=== PATIENT | male | born 1950 | race Caucasian/White ===

== ENCOUNTER 2021-04-30 07:51 | Inpatient (IN) | payer BC, MEDICARE ==
[2021-04-30 08:34] LABS: #Basophils 0.1 thou/uL (0.0-0.2); #Eosinphils 0.1 thou/uL (0.0-0.7); #Lymphocytes 0.8 thou/uL (1.20-3.40); #Monocytes 0.7 thou/uL (0.11-0.59); #Neutrophils 7.2 thou/uL (1.40-6.50); %Basophils 0.9 % (0.0-1.0); %Eosinophils 0.7 % (0.0-10.0); %Lymphocytes 8.9 % (21.0-51.0); %Monocytes 8.3 % (0.0-10.0); %Neutrophils 81.3 % (42.0-75.0); Mean Corpuscular HGB CONC 33.8 g/dL (32.0-36.0); Mean Corpuscular Hemoglobin 33.2 pg (27.0-31.0); Mean Corpuscular Volume 98.2 fL (78.0-98.0); Mean Platelet Volume 8.2 fL (7.4-10.4); Platelet Count 122 thou/uL (130-400); RBC Distribution Width 12.4 % (11.5-14.5); White Blood Cell (WBC) Count 8.8 thou/uL (4.8-10.8)
[2021-04-30 08:46] LABS: AST (SGOT) 23 U/L (5-34); Anion Gap 17 mmol/L (10-20); Bilirubin, Total 0.8 mg/dL (0.2-1.2); Carbon Dioxide 20 mmol/L (23-31); Chloride 108 mmol/L (98-107); Potassium 3.6 mmol/L (3.5-5.1); Sodium 141 mmol/L (136-145)
[2021-04-30 08:53] LABS: ALT (SGPT) 31 U/L (8-55); Albumin 3.2 g/dL (3.4-4.8); Alkaline Phosphatase 56 U/L (40-110); BUN (Urea Nitrogen) 17 mg/dL (8.4-25.7); CK (CPK) 112 U/L (30-200); Calc. Creatinine Clearance 0 mL/min (70-130); Globulin 1.6 g/dL (2.4-3.5); Glucose 176 mg/dL (80-115); Protein, Total 4.8 g/dL (5.8-8.1)
[2021-04-30 09:36] LABS: INR-International Normal Ratio 1.5; PTT 28.8 sec (22.9-36.1); Prothrombin Time 18.3 sec (12.0-14.7)
[2021-04-30] MEDS ORDERED: Iopamidol-370 76% 500 ML 1 ML ONE (10:15)
[2021-04-30] MEDS ORDERED: ADMIXTURE FEE IV SCH (11:00)
[2021-04-30] MEDS ORDERED: HUMAN PROTHROMBIN COMPLX IV SCH (11:00)
[2021-04-30] MEDS ORDERED: cefOXitin 2 GM in Sodium Chloride 0.9% 100 ML IVPB SCH (12:15)
[2021-04-30] MEDS ORDERED: HYDROmorphone 0.5 MG/0.5 ML SYRINGE ONE (13:21)
[2021-04-30] MEDS ORDERED: Fentanyl 100 MCG/2 ML VIAL ONE (13:21)
[2021-04-30] MEDS ORDERED: Midazolam HCl 2 mg/2 ml Vial ONE (13:25)
[2021-04-30] MEDS ORDERED: cefOXitin Sodium/Dextrose 2 GM/50 ML BAG ONE (13:29)
[2021-04-30] MEDS ORDERED: Calcium Chloride 1 GM/10 ML Abboject SYRINGE ONE ×2 (13:34→13:44)
[2021-04-30] MEDS ORDERED: Phenylephrine 10 MG/ML VIAL ONE (13:34)
[2021-04-30] MEDS ORDERED: PROPOFOL 200 MG/20 ML VIAL ONE (13:44)
[2021-04-30] MEDS ORDERED: Dexamethasone 20 MG/5 ML VIAL ONE (13:44)
[2021-04-30] MEDS ORDERED: Lidocaine 1% PF 5 ML VIAL ONE (13:44)
[2021-04-30] MEDS ORDERED: Ondansetron PF 4 MG/2 ML Vial ONE (13:44)
[2021-04-30] MEDS ORDERED: Rocuronium Bromide 10 MG/ML (10ML VIAL) ONE (13:44)
[2021-04-30] MEDS ORDERED: Glycopyrrolate 0.2 MG/ML 5 ML SYRINGE ONE (13:44)
[2021-04-30] MEDS ORDERED: Ketorolac Tromethamine 30 MG/ML VIAL ONE (13:44)
[2021-04-30] MEDS ORDERED: Bupivacaine 0.25% HCL 30 ML VIAL ONE (14:10)
[2021-04-30] MEDS ORDERED: Lidocaine 1% w/Epinephrine 1:100K 20 ML VIAL ONE (14:10)
[2021-04-30] MEDS ORDERED: diphenhydrAMINE 25 MG CAP PO PRN (15:11)
[2021-04-30] MEDS ORDERED: Zolpidem Tartrate 5 MG TAB PO PRN (15:11)
[2021-04-30] MEDS ORDERED: Promethazine HCl 25 MG/ML VIAL SLOW IVP PRN (15:11)
[2021-04-30] MEDS ORDERED: Ondansetron HCl/PF 4 MG/2 ML Vial IVP PRN (15:11)
[2021-04-30] MEDS ORDERED: Promethazine HCl 25 MG/ML VIAL IM PRN ×3 (15:11→16:55)
[2021-04-30] MEDS ORDERED: fentaNYL Citrate/PF 2,000 MCG in Sodium Chloride 0.9% 60 ML IV PRN (15:11)
[2021-04-30] MEDS ORDERED: diphenhydrAMINE 50 MG/ML VIAL IVP PRN (15:11)
[2021-04-30] MEDS ORDERED: diphenhydrAMINE 50 MG/ML VIAL IM PRN (15:11)
[2021-04-30] MEDS ORDERED: Ondansetron PF 4 MG/2 ML Vial IVP PRN ×2 (15:11→16:55)
[2021-04-30] MEDS ORDERED: Naloxone HCl 0.4 mg/ml Vial IV PRN (15:11)
[2021-04-30] MEDS ORDERED: Communication Order-Pharmacy FS SCH (15:15)
[2021-04-30] MEDS ORDERED: hydrALAZINE 20 MG/ML VIAL SLOW IVP PRN (16:55)
[2021-04-30] MEDS ORDERED: D5 1/2 NS w/20 mEq KCL 1,000 ML ONE (16:58)
[2021-04-30] MEDS: cefOXitin 2 GM in Sodium Chloride 0.9% 100 ML IVPB SCH (20:31)
[2021-04-30] MEDS: Famotidine/PF 20 mg/2ml Vial SLOW IVP SCH (20:39)
[2021-04-30] MEDS: Famotidine 20 MG TAB PO SCH (20:39)
[2021-04-30] MEDS: D5 1/2 NS w/20 mEq KCL 1,000 ML IV SCH (20:58)
[2021-04-30 21:41] VITALS: BMI 27.1
[2021-05-01] MEDS ORDERED: DEXTROSE ISO IVPB SCH (05:00)
[2021-05-01] MEDS ORDERED: cefOXitin Sodium/Dextrose,Iso 2 GM in Premix Bag 1 BAG IVPB SCH (05:00)
[2021-05-01] MEDS ORDERED: SODIUM CHLORIDE 0.9% IVPB SCH (05:00)
[2021-05-01] MEDS ORDERED: CEFOXITIN SODIUM IVPB SCH (05:00)
[2021-05-01 05:19] LABS: #Lymphocytes 0.8 thou/uL (1.20-3.40); #Monocytes 0.7 thou/uL (0.11-0.59); #Neutrophils 7.9 thou/uL (1.40-6.50); %Basophils 0.2 % (0.0-1.0); %Lymphocytes 8.2 % (21.0-51.0); %Monocytes 7.9 % (0.0-10.0); %Neutrophils 83.8 % (42.0-75.0); Hemoglobin 10.7 g/dL (14.0-18.0); Mean Corpuscular Hemoglobin 31.9 pg (27.0-31.0); Mean Corpuscular Volume 96.4 fL (78.0-98.0); Mean Platelet Volume 8.2 fL (7.4-10.4); Platelet Count 117 thou/uL (130-400); RBC Distribution Width 12.5 % (11.5-14.5); Red Blood Cell (RBC) Count 3.36 mill/uL (4.70-6.10); White Blood Cell (WBC) Count 9.5 thou/uL (4.8-10.8)
[2021-05-01 05:42] LABS: Anion Gap 12 mmol/L (10-20); BUN (Urea Nitrogen) 18 mg/dL (8.4-25.7); Calc. Creatinine Clearance 85 mL/min (70-130); Calcium 7.9 mg/dL (7.8-10.44); Carbon Dioxide 22 mmol/L (23-31); Chloride 112 mmol/L (98-107); Glucose 129 mg/dL (80-115); Sodium 141 mmol/L (136-145)
[2021-05-01] MEDS: D5 1/2 NS w/20 mEq KCL 1,000 ML IV SCH (05:52)
[2021-05-01] MEDS: cefOXitin 2 GM in Sodium Chloride 0.9% 100 ML IVPB SCH (07:16)
[2021-05-01] MEDS: Sodium Chloride 0.9% 1,000 ML IV SCH ×2 (09:17→19:23)
[2021-05-01] MEDS: Famotidine/PF 20 mg/2ml Vial SLOW IVP SCH ×2 (09:17→20:10)
[2021-05-01] MEDS: Famotidine 20 MG TAB PO SCH ×2 (09:18→20:09)
[2021-05-01] MEDS ORDERED: Tamsulosin HCl 0.4 MG CAP PO SCH (12:00)
[2021-05-01] MEDS ORDERED: Ketorolac Tromethamine 30 MG/ML VIAL IVP SCH (13:15)
[2021-05-01] MEDS ORDERED: Ketorolac Tromethamine 30 MG/ML VIAL IVP PRN (19:32)
[2021-05-01] MEDS: Tamsulosin HCl 0.4 MG CAP PO SCH (20:09)
[2021-05-01] MEDS: Enoxaparin Sodium 40 MG/0.4 ML SYRINGE SC SCH (20:10)
[2021-05-02] MEDS: Sodium Chloride 0.9% 1,000 ML IV SCH ×3 (02:42→16:58)
[2021-05-02] MEDS: Tamsulosin HCl 0.4 MG CAP PO SCH ×2 (05:23→20:20)
[2021-05-02 06:05] LABS: #Eosinphils 0.1 thou/uL (0.0-0.7); #Lymphocytes 1.1 thou/uL (1.20-3.40); #Neutrophils 5.3 thou/uL (1.40-6.50); %Basophils 0.2 % (0.0-1.0); %Eosinophils 1.1 % (0.0-10.0); %Lymphocytes 15.1 % (21.0-51.0); %Monocytes 12.9 % (0.0-10.0); %Neutrophils 70.7 % (42.0-75.0); Hemoglobin 10.3 g/dL (14.0-18.0); Mean Corpuscular HGB CONC 34.2 g/dL (32.0-36.0); Mean Corpuscular Volume 96.5 fL (78.0-98.0); Mean Platelet Volume 7.9 fL (7.4-10.4); Platelet Count 115 thou/uL (130-400); RBC Distribution Width 12.4 % (11.5-14.5); Red Blood Cell (RBC) Count 3.11 mill/uL (4.70-6.10); White Blood Cell (WBC) Count 7.4 thou/uL (4.8-10.8)
[2021-05-02 06:22] LABS: Anion Gap 10 mmol/L (10-20); BUN (Urea Nitrogen) 16 mg/dL (8.4-25.7); Calc. Creatinine Clearance 103 mL/min (70-130); Calcium 7.9 mg/dL (7.8-10.44); Carbon Dioxide 22 mmol/L (23-31); Chloride 111 mmol/L (98-107); Glucose 95 mg/dL (80-115); Potassium 3.9 mmol/L (3.5-5.1); Sodium 139 mmol/L (136-145)
[2021-05-02] MEDS: Famotidine 20 MG TAB PO SCH ×2 (07:56→20:20)
[2021-05-02] MEDS: Famotidine/PF 20 mg/2ml Vial SLOW IVP SCH ×2 (07:57→20:20)
[2021-05-02] MEDS ORDERED: HYDROcodone/Acetaminophen 5/325 mg Tablet PO PRN ×2 (11:47→11:48)
[2021-05-02] MEDS ORDERED: traMADol HCl 50 MG TAB PO PRN (11:48)
[2021-05-02] MEDS: traMADol HCl 50 MG TAB PO PRN ×2 (11:55→16:56)
[2021-05-02] MEDS: Enoxaparin Sodium 40 MG/0.4 ML SYRINGE SC SCH (20:20)
[2021-05-02] MEDS ORDERED: Acetaminophen 325 MG TAB PO PRN ×2 (22:01)
[2021-05-02 22:07] LABS: Bilirubin Negative (Negative); Blood, Urine Large (Negative); Glucose, Urine (Dipstick) Negative (Negative); Ketone, Urine Negative (Negative); Leukocyte Small (Negative); Nitrite Positive (Negative); Protein, Urine (Dipstick) Negative (Neg-Trace); Specific Gravity, Urine 1.025 (1.005-1.030); Urobilinogen 0.2 mg/dL (Less than 2); pH, Urine 5.5 (5.0-9.0)
[2021-05-02 22:12] LABS: Bacteria/HPF 4+ HPF (None Seen); Mucous/LPF Rare LPF (<2+); RBC/HPF Greater than 50 HPF (0-3); Squamous Epithelial 0-3 HPF (0-3); WBC/HPF Greater than 50 HPF (0-3)
[2021-05-02 22:14] LABS: Clarity Hazy (Clear)
[2021-05-03] MEDS: Sodium Chloride 0.9% 1,000 ML IV SCH ×3 (02:03→16:36)
[2021-05-03 06:10] LABS: #Eosinphils 0.2 thou/uL (0.0-0.7); #Lymphocytes 1.2 thou/uL (1.20-3.40); #Monocytes 0.9 thou/uL (0.11-0.59); #Neutrophils 5.6 thou/uL (1.40-6.50); %Basophils 0.4 % (0.0-1.0); %Eosinophils 2.1 % (0.0-10.0); %Lymphocytes 15.4 % (21.0-51.0); %Monocytes 11.1 % (0.0-10.0); Hemoglobin 9.8 g/dL (14.0-18.0); Mean Corpuscular HGB CONC 34.2 g/dL (32.0-36.0); Mean Corpuscular Hemoglobin 33.2 pg (27.0-31.0); Mean Corpuscular Volume 97.1 fL (78.0-98.0); Mean Platelet Volume 7.7 fL (7.4-10.4); Platelet Count 140 thou/uL (130-400); RBC Distribution Width 12.2 % (11.5-14.5); Red Blood Cell (RBC) Count 2.94 mill/uL (4.70-6.10); White Blood Cell (WBC) Count 7.9 thou/uL (4.8-10.8)
[2021-05-03 06:18] LABS: INR-International Normal Ratio 1.2; PTT 35.7 sec (22.9-36.1); Prothrombin Time 15.4 sec (12.0-14.7)
[2021-05-03 06:47] LABS: Anion Gap 11 mmol/L (10-20); BUN (Urea Nitrogen) 11 mg/dL (8.4-25.7); Calc. Creatinine Clearance 106 mL/min (70-130); Calcium 8.1 mg/dL (7.8-10.44); Carbon Dioxide 25 mmol/L (23-31); Chloride 108 mmol/L (98-107); Glucose 94 mg/dL (80-115); Sodium 140 mmol/L (136-145)
[2021-05-03] MEDS: Famotidine 20 MG TAB PO SCH ×2 (08:16→21:01)
[2021-05-03] MEDS: Ferrous Sulfate 325 MG TAB PO SCH (08:16)
[2021-05-03] MEDS: Famotidine/PF 20 mg/2ml Vial SLOW IVP SCH (08:16)
[2021-05-03] MEDS: Multivit, Therapeutic 1 TAB PO SCH (08:16)
[2021-05-03] MEDS: Tamsulosin HCl 0.4 MG CAP PO SCH ×3 (08:16→21:02)
[2021-05-03] MEDS ORDERED: traMADol HCl 50 MG TAB PO PRN ×2 (08:25)
[2021-05-03] MEDS ORDERED: Enoxaparin Sodium 40 MG/0.4 ML SYRINGE SC SCH (08:31)
[2021-05-03] MEDS ORDERED: Non-Formulary Item 1 EACH (Amlodipine Besylate [Amlodipine Besylate] 2.5 MG Tablet) PO SCH (09:00)
[2021-05-03] MEDS ORDERED: Non-Formulary Item 1 EACH (Finasteride [Finasteride] 1 MG Tablet) PO SCH (09:00)
[2021-05-03] MEDS: Amlodipine 5 MG TAB PO SCH (09:13)
[2021-05-03] MEDS: Atorvastatin Calcium 20 MG TAB PO SCH (09:14)
[2021-05-03] MEDS: Cholecalciferol 1,000 UNITS (25 MCG) TAB PO SCH (09:15)
[2021-05-03] MEDS: Finasteride 5 MG TAB PO SCH (09:15)
[2021-05-03] MEDS: Saccharomyces boulardii 250 MG CAP PO SCH (10:21)
[2021-05-03] MEDS: traMADol HCl 50 MG TAB PO PRN (16:36)
[2021-05-03] MEDS ORDERED: Montelukast Sodium 10 mg Tablet PO SCH (21:00)
[2021-05-03] MEDS ORDERED: Enoxaparin Sodium 100 MG/ML SYRINGE SC SCH (21:00)
[2021-05-04] MEDS: Sodium Chloride 0.9% 1,000 ML IV SCH (02:48)
[2021-05-04 06:09] LABS: #Eosinphils 0.1 thou/uL (0.0-0.7); #Lymphocytes 1.2 thou/uL (1.20-3.40); #Neutrophils 7.3 thou/uL (1.40-6.50); %Basophils 0.3 % (0.0-1.0); %Eosinophils 1.5 % (0.0-10.0); %Lymphocytes 12.4 % (21.0-51.0); %Monocytes 10.6 % (0.0-10.0); %Neutrophils 75.1 % (42.0-75.0); Hemoglobin 9.5 g/dL (14.0-18.0); Mean Corpuscular HGB CONC 34.2 g/dL (32.0-36.0); Mean Corpuscular Volume 96.5 fL (78.0-98.0); Mean Platelet Volume 7.6 fL (7.4-10.4); Platelet Count 153 thou/uL (130-400); RBC Distribution Width 12.2 % (11.5-14.5); Red Blood Cell (RBC) Count 2.86 mill/uL (4.70-6.10); White Blood Cell (WBC) Count 9.8 thou/uL (4.8-10.8)
[2021-05-04] MEDS ORDERED: metroNIDAZOLE 500 MG TAB PO SCH ×2 (09:00→15:00)
[2021-05-04] MEDS: Cholecalciferol 1,000 UNITS (25 MCG) TAB PO SCH (09:03)
[2021-05-04] MEDS: Amlodipine 5 MG TAB PO SCH (09:06)
[2021-05-04] MEDS: Tamsulosin HCl 0.4 MG CAP PO SCH (09:08)
[2021-05-04] MEDS: Ferrous Sulfate 325 MG TAB PO SCH (09:08)
[2021-05-04] MEDS: Famotidine 20 MG TAB PO SCH (09:08)
[2021-05-04] MEDS: Saccharomyces boulardii 250 MG CAP PO SCH (09:08)
[2021-05-04] MEDS: Multivit, Therapeutic 1 TAB PO SCH (09:09)
[2021-05-04] MEDS: Finasteride 5 MG TAB PO SCH (09:09)
[2021-05-04] MEDS: Atorvastatin Calcium 20 MG TAB PO SCH (09:09)
[2021-05-04 12:00] VITALS: BP 104/80; TEMP 98.3
== END 2021-05-04 12:15 | disposition home or self-care (01) | DRG 330 ==
LOC: ERS 07:51 → SDC 13:24 → SURG A 13:40
PROVIDERS: ADMIT Surgery; ATTEND Surgery
PROC: 0DB80ZZ Excision of Small Intestine, Open Approach (ICD-10-PCS; principal; 2021-04-30)
PROC: 0DBV0ZZ Excision of Mesentery, Open Approach (ICD-10-PCS; 2021-04-30)
PROC: 0T9B70Z Drainage of Bladder with Drainage Device, Via Natural or Artificial Opening (ICD-10-PCS; 2021-04-30)
PROC: 8E0ZXY6 Isolation (ICD-10-PCS; 2021-05-03)
DX: K66.1 Hemoperitoneum (principal); Z94.81 Bone marrow transplant status; N39.0 Urinary tract infection, site not specified; A04.72 Enterocolitis due to Clostridium difficile, not specified as recurrent; D68.32 Hemorrhagic disorder due to extrinsic circulating anticoagulants; I48.91 Unspecified atrial fibrillation; E78.5 Hyperlipidemia, unspecified; N20.0 Calculus of kidney; N40.1 Benign prostatic hyperplasia with lower urinary tract symptoms; R33.8 Other retention of urine; T45.515A Adverse effect of anticoagulants, initial encounter; Z79.01 Long term (current) use of anticoagulants; Z85.72 Personal history of non-Hodgkin lymphomas; Z92.21 Personal history of antineoplastic chemotherapy; Z95.0 Presence of cardiac pacemaker; Z79.899 Other long term (current) drug therapy; Z79.82 Long term (current) use of aspirin; Z79.02 Long term (current) use of antithrombotics/antiplatelets; Z85.6 Personal history of leukemia; Z87.442 Personal history of urinary calculi; Z87.440 Personal history of urinary (tract) infections
CPT/HCPCS: 36415; 36430; 71045; 74177; 80048; 80053; 81001; 82550; 83630; 84484; 85025; 85610; 85730; 86850; 86900; 86901; 87045; 87046; 87077; 87081; 87086; 87186; 87324; 87427; 87449; 87493; 88307; 93005; 96365; C9132; J0694; J1100; J1170; J1650; J1885; J2250; J2370; J2405; J2704; J3010; J3480; J3490; P9016; Q9967; S0020; S0028